=== PATIENT | female | born 1985 | race Two or more races ===

== ENCOUNTER → 2017-03-25 | Outpatient (CLI) | payer BC ==
[~2017-03-25] MED LIST: REGADENOSON 0.4 MG/5 ML SYRINGE ONE
== END | disposition home or self-care (01) ==
LOC: CFH 06:54
PROVIDERS: ATTEND Internal Medicine Cardiovascular Disease
DX: I51.81 Takotsubo syndrome (principal); I25.2 Old myocardial infarction
CPT/HCPCS: 78452; 93017; 93306; A9502; J2785